=== PATIENT | male | born 1990 | race Caucasian/White ===

== ENCOUNTER 2018-07-07 21:18 | Emergency (ER) | payer BC ==
[~2018-07-07] VITALS: Ht 185.4 cm; Wt 165.6 kg
[~2018-07-07 21:18] MED LIST: BACTRIM DS 8001 TA1 PO; CATAFLAM50 MG PO; CHOLESTEROL1 POW; CIPRO500 MG PO; CLEOCIN HCL150 MG PO; DARVOCET N 1001 TAB PO; FLEXERIL5 MG PO; LOW DOSE ASPIRI81 MG PO; MOTRIN800 MG PO; NEXIUM40 MG PO; NKHM; NO DAILY MEDS; PERCOCET 325 MG1 TA2 PO; TOBRADEX 0.1%-01 OI1 OP; TRAMADOL HCL50 MG PO; VICODIN 5/500 505 MG PO; VICODIN 500 MG-1 TAB PO; VISTARIL25 MG PO; VITAMIN D31000 IU PO; VOLTAREN50 M1 PO; ZANTAC 7575 MG PO; ZESTRIL,PRINIVIL5 MG PO; ZOFRAN ODT4 MG SL
[2018-07-07] MEDS ORDERED: IBUPROFEN600 MG PO (23:57)
[2018-07-07] MEDS ORDERED: CEPHALEXIN500 M1 PO (23:57)
== END 2018-07-08 00:40 | disposition home or self-care (01) ==
LOC: ED 21:18
DX: S83.91XA Sprain of unspecified site of right knee, initial encounter (principal); Z79.899 Other long term (current) drug therapy; Z79.82 Long term (current) use of aspirin; X50.1XXA Overexertion from prolonged static or awkward postures, initial encounter; Y93.01 Activity, walking, marching and hiking; Y92.098 Other place in other non-institutional residence as the place of occurrence of the external cause; Y99.8 Other external cause status

== ENCOUNTER 2024-06-02 08:43 | Emergency (ER) | payer BC ==
[~2024-06-02] VITALS: Ht 185.4 cm; Wt 181.4 kg
[~2024-06-02 08:43] MED LIST changes: +CEPHALEXIN500 M1 PO; +IBUPROFEN600 MG PO
[2024-06-02] MEDS ORDERED: IBUPROFEN 600 MG TAB PO ONE (09:00)
[2024-06-02] MEDS ORDERED: ACETAMINOPHEN 325 MG TAB PO ONE (09:00)
[2024-06-02] MEDS ORDERED: GABAPENTIN 300 MG CAP PO ONE (09:00)
[2024-06-02 09:10] LABS: BASO # 0.1 10*3/uL (0.0-0.1); BASO % 0.9 % (0.0-1.0); EOS # 0.1 10*3/uL (0.0-0.4); EOS % 1.5 % (1.0-4.0); LYMPH # 2.1 10*3/uL (1.3-4.4); MEAN CELL VOLUME 88.2 fl (80.0-94.0); MEAN CORPUSCULAR HGB 29.6 pg (27.0-31.0); MEAN CORPUSCULAR HGB CONC 33.6 g/dl (33.0-37.0); MEAN PLATELET VOLUME 9.3 fl (9.6-12.3); MONO # 0.5 10*3/uL (0.1-1.0); MONO % 8.9 % (3.0-9.0); NEUT # 3.1 10*3/uL (2.3-7.9); NEUT % 52.2 % (47.0-73.0); PLATELET COUNT AUTOMATED 214 10*3/uL (130-400); RED BLOOD COUNT 5.33 10*6/uL (4.50-5.90); RED CELL DISTRI WIDTH 12.8 % (0-14.5); WHITE BLOOD COUNT 5.9 10*3/uL (4.8-10.8)
[2024-06-02 09:31] LABS: ALKALINE PHOSPHATASE 73 U/L (46-116); BUN 9 mg/dl (9-23); CHLORIDE 104 mmol/L (98-107); POTASSIUM 4.1 mmol/L (3.4-5.1); SGPT/ALT 48 U/L (5-49); TOTAL PROTEIN 7.4 gm/dL (6.0-8.0); URIC ACID 7.3 mg/dL (3.7-9.2)
[2024-06-02] MEDS ORDERED: BUPIVACAINE 0.5% 10 ML VIAL SC ONE (10:55)
== END 2024-06-02 11:42 | disposition home or self-care (01) ==
LOC: ED 08:43
PROVIDERS: Emergency Medicine
DX: M72.2 Plantar fascial fibromatosis (principal); M79.671 Pain in right foot; Z79.2 Long term (current) use of antibiotics; Z79.899 Other long term (current) drug therapy; Z79.82 Long term (current) use of aspirin; Z96.651 Presence of right artificial knee joint

== ENCOUNTER 2025-09-18 19:47 | Emergency (ER) | payer BC ==
[~2025-09-18] VITALS: Ht 182.8 cm; Wt 176.9 kg
[2025-09-18 20:17] LABS: BASO # 0.1 10*3/uL (0.0-0.1); BASO % 0.7 % (0.0-1.0); EOS # 0.1 10*3/uL (0.0-0.4); EOS % 1.7 % (1.0-4.0); MEAN CELL VOLUME 88.2 fl (80.0-94.0); MEAN CORPUSCULAR HGB 30.3 pg (27.0-31.0); MEAN PLATELET VOLUME 9.4 fl (9.6-12.3); MONO # 0.7 10*3/uL (0.1-1.0); MONO % 9.2 % (3.0-9.0); NEUT # 3.8 10*3/uL (2.3-7.9); NEUT % 53.6 % (47.0-73.0); NUCLEATED RED BLOOD CELL 0.0 % (0.0-0.0); NUCLEATED RED BLOOD CELL 0.0 10*3/uL (0.0-0.0); PLATELET COUNT AUTOMATED 223 10*3/uL (130-400); RED CELL DISTRI WIDTH 12.6 % (0-14.5)
[2025-09-18 20:32] LABS: ACT PARTIAL THROMBO TIME 26.7 SECONDS (20.0-32.1)
[2025-09-18 20:40] LABS: BUN 16 mg/dl (9-23); SGPT/ALT 48 U/L (5-49)
[2025-09-18 21:57] LABS: URINE AMPHETAMINES Negative (1000ng/ml); URINE BARBITURATES Negative (200ng/ml); URINE BENZODIAZEPINES Negative (200ng/ml); URINE CANNABINOIDS (THC) Negative (50ng/ml); URINE COCAINE Negative (300ng/ml); URINE METHADONE Negative (300ng/ml); URINE OPIATES Negative (300ng/ml); URINE PHENCYCLIDINE Negative (25ng/ml)
== END 2025-09-18 23:05 | disposition home or self-care (01) ==
LOC: ED 19:47
PROVIDERS: Internal Medicine
DX: R07.89 Other chest pain (principal); I10 Essential (primary) hypertension; Z98.890 Other specified postprocedural states; Z96.651 Presence of right artificial knee joint; Z79.899 Other long term (current) drug therapy